=== PATIENT | female | born 1950 | race Caucasian/White ===

== ENCOUNTER → 2017-03-29 | Outpatient (CLI) | payer OTHER ==
[~2017-03-29] MED LIST: CHOL10002; CLIM.025TP; IBUP400; IBUPROFEN 600 MG; LEVA1.25 INH; LEVSOD100; LORA1; MONT10T PO; OMEP20ER PO; VITAMIN B; Xopenex Hfa15 GM INH; [UNRECOGNIZED DRUG - REMARK]
[2017-03-29 14:23] LABS: Candida species (DNA Probe) Negative (NEGATIVE); G. vaginalis (DNA Probe) Negative (NEGATIVE); T. vaginalis (DNA Probe) Negative (NEGATIVE)
== END ==
LOC: LAB 11:34
PROVIDERS: Obstetrics & Gynecology
DX: N76.0 Acute vaginitis (principal)
CPT/HCPCS: 87480; 87510; 87660

== ENCOUNTER → 2018-06-09 | Outpatient (CLI) | payer OTHER ==
[2018-06-12 14:08] LABS: HPV 16 Negative (Negative); HPV 18 Negative (Negative); HPV OTHER HR TYPES Negative (Negative)
== END | disposition home or self-care (01) ==
LOC: LAB 10:40 → LAB SHORT 10:40
PROVIDERS: Obstetrics & Gynecology
DX: Z01.419 Encounter for gynecological examination (general) (routine) without abnormal findings (principal)
CPT/HCPCS: 87624; G0123

== ENCOUNTER → 2018-07-20 | Outpatient (CLI) | payer OTHER ==
[2018-07-20 14:51] LABS: BASOPHILS ABSOLUTE AUTO 0.03 K/mm3 (0.00-0.23); BASOPHILS PERCENT AUTO 1 % (0-2); EOSINOPHILS ABSOLUTE AUTO 0.07 K/mm3 (0.00-0.68); EOSINOPHILS PERCENT AUTO 1 % (0-6); Hematocrit 45.7 % (33.0-51.0); Hemoglobin 15.1 g/dL (11.5-16.0); IMMATURE GRAN ABSOLUTE AUTO 0.01 K/mm3 (0.00-0.10); IMMATURE GRAN PERCENT AUTO 0 % (0-1); LYMPHOCYTES ABSOLUTE AUTO 1.26 K/mm3 (0.84-5.20); LYMPHOCYTES PERCENT AUTO 24 % (21-46); MONOCYTES ABSOLUTE AUTO 0.33 K/mm3 (0.16-1.47); MONOCYTES PERCENT AUTO 6 % (4-13); Mean Corpuscular HGB 31.6 pg (26.0-34.0); Mean Corpuscular Volume 96 fL (80-100); NEUTROPHILS ABSOLUTE AUTO 3.47 K/mm3 (1.96-9.15); NEUTROPHILS PERCENT AUTO 67 % (41-73); Platelet Count 187 K/mm3 (150-400); RDW Coefficient Variation 12.4 % (11.7-14.2); RDW Standard Deviation 44.9 fL (35.1-46.3); Red Blood Cell Count 4.78 M/mm3 (3.80-5.20); White Blood Cell Count 5.17 K/mm3 (4.00-11.30)
[2018-07-20 14:54] LABS: Mean Platelet Volume 13.4 fL (9.1-12.4)
[2018-07-20 15:10] LABS: Alanine Aminotransfer (ALT/SGP 30 U/L (12-78); Albumin, Blood 3.7 g/dL (3.4-5.0); Albumin/Globulin Ratio 1.1 (0.8-1.8); Alk Phos 86 U/L (50-136); Anion Gap 5 mmol/L (6-16); Aspartate Aminotrans (AST/SGOT 15 U/L (12-37); Bilirubin, Total 0.4 mg/dL (0.1-1.0); Blood Urea Nitrogen 12 mg/dL (8-24); Bun/Creatinine Ratio 14.9 (12.0-20.0); CO2, Blood 27 mmol/L (21-32); Calcium, Blood 9.2 mg/dL (8.5-10.1); Chloride, Blood 109 mmol/L (98-108); Globulin, Blood 3.4 g/dL (2.2-4.0); Glomerular Filtration Rate >60 (60-); Glucose, Blood 93 mg/dL (70-99); Sodium, Blood 141 mmol/L (136-145); Total Protein, Blood 7.1 g/dL (6.4-8.2)
== END | disposition home or self-care (01) ==
LOC: LAB SHORT 14:14 → LAB 14:14
PROVIDERS: Hospitalist
DX: R10.11 Right upper quadrant pain (principal)
CPT/HCPCS: 80053; 85025

== ENCOUNTER → 2019-04-10 | Outpatient (CLI) | payer OTHER | LOC: LAB 17:45 → LAB SHORT 17:45 | DX: M79.671 Pain in right foot (principal); M79.672 Pain in left foot | CPT/HCPCS: 84550; 85651 ==

== ENCOUNTER → 2019-07-23 | Outpatient (CLI) | payer OTHER | END | disposition home or self-care (01) | LOC: LAB 13:29 → LAB SHORT 13:29 | DX: R30.0 Dysuria (principal) | CPT/HCPCS: 87086 ==

== ENCOUNTER → 2020-09-17 | Outpatient (CLI) | payer OTHER | END | disposition home or self-care (01) | LOC: LAB SHORT 13:55 | DX: R30.0 Dysuria (principal) | CPT/HCPCS: 87086 ==

== ENCOUNTER → 2021-01-15 | Outpatient (CLI) | payer OTHER ==
[2021-01-15 16:06] LABS: Free Thyroxine 1.07 ng/dL (0.70-1.60)
[2021-01-15 16:08] LABS: Thyroid Stimulating Hormone 2.88 uIU/mL (0.360-4.800)
== END | disposition home or self-care (01) ==
LOC: LAB 13:31 → LAB SHORT 13:31
PROVIDERS: Hospitalist
DX: G43.009 Migraine without aura, not intractable, without status migrainosus (principal); E03.9 Hypothyroidism, unspecified
CPT/HCPCS: 84439; 84443

== ENCOUNTER 2021-04-08 07:55 | Day surgery (SDC) | payer OTHER ==
[~2021-04-08] VITALS: Ht 154.9 cm; Wt 91.5 kg
--- NOTE | 2021-04-08 15:05 | NUR ---
04/08/21 1505 TYLER REIS CHANGED BUBBLE GAUZE PLE RED/PINK DRAINAGE. D/C WITH DRESSING C/D/I PT PAIN IS TOLERABLE AND STATES SHE IS READY TO DISCHARGE.
== END 2021-04-08 15:56 | disposition home or self-care (01) ==
LOC: ORSCSDS 07:55
PROVIDERS: Otolaryngology
PROC: 0NR507Z Replacement of Right Temporal Bone with Autologous Tissue Substitute, Open Approach (ICD-10-PCS; principal; 2021-04-08 09:15)
DX: H71.01 Cholesteatoma of attic, right ear (principal); J45.909 Unspecified asthma, uncomplicated; Z87.891 Personal history of nicotine dependence; G47.33 Obstructive sleep apnea (adult) (pediatric); E03.9 Hypothyroidism, unspecified; K21.9 Gastro-esophageal reflux disease without esophagitis; E66.01 Morbid (severe) obesity due to excess calories; Z68.38 Body mass index [BMI] 38.0-38.9, adult; Z79.899 Other long term (current) drug therapy
CPT/HCPCS: A9270; J0171; J1100; J1885; J2250; J2405; J2704; J3010; J7120

== ENCOUNTER → 2021-08-19 | Outpatient (CLI) | payer OTHER | END | disposition home or self-care (01) | LOC: LAB 16:15 → LAB SHORT 16:15 | DX: M79.674 Pain in right toe(s) (principal) | CPT/HCPCS: 84550 ==

== ENCOUNTER 2021-08-26 14:20 | Emergency (ER) | payer OTHER ==
[~2021-08-26] VITALS: Ht 154.9 cm; Wt 74.8 kg
== END 2021-08-26 17:01 | disposition home or self-care (01) ==
LOC: ER 14:20
DX: S92.022A Displaced fracture of anterior process of left calcaneus, initial encounter for closed fracture (principal); W17.2XXA Fall into hole, initial encounter; Y92.89 Other specified places as the place of occurrence of the external cause; Z87.891 Personal history of nicotine dependence; Z79.899 Other long term (current) drug therapy
CPT/HCPCS: 29505; 73610; 73630; 99283-25

== ENCOUNTER → 2023-03-10 | Outpatient (CLI) | payer OTHER ==
[2023-03-10 19:16] LABS: Albumin, Blood 3.6 g/dL (3.4-5.0); Albumin/Globulin Ratio 1.1 (0.8-1.8); Bilirubin, Total 0.4 mg/dL (0.1-1.0); Bun/Creatinine Ratio 19.1 (12.0-20.0); Calcium, Blood 9.6 mg/dL (8.5-10.1); Free Thyroxine 1.16 ng/dL (0.70-1.60); Globulin, Blood 3.4 g/dL (2.2-4.0); Potassium, Blood 4.3 mmol/L (3.5-5.5); Thyroid Stimulating Hormone 2.99 uIU/mL (0.360-4.800)
== END ==
LOC: LAB 17:50 → LAB SHORT 17:50
PROVIDERS: Hospitalist
DX: E03.9 Hypothyroidism, unspecified (principal)
CPT/HCPCS: 80053; 84439; 84443

== ENCOUNTER 2023-09-29 15:11 | Emergency (ER) | payer OTHER ==
[~2023-09-29] VITALS: Ht 160 cm; Wt 81.7 kg
[2023-09-29 15:29] VITALS: BP 170/89
[2023-09-29] MEDS ORDERED: Acetaminophen 500 MG Tab PO ONE (15:40)
[2023-09-29] MEDS ORDERED: Ketorolac Tromethamine 30mg Vial IM ONE (15:40)
== END 2023-09-29 16:05 | disposition home or self-care (01) ==
LOC: ER 15:11
DX: S80.01XA Contusion of right knee, initial encounter (principal); W18.30XA Fall on same level, unspecified, initial encounter; Z88.2 Allergy status to sulfonamides; Z79.899 Other long term (current) drug therapy
CPT/HCPCS: A9270; J1885

== ENCOUNTER → 2024-03-08 | Outpatient (CLI) | payer OTHER ==
[2024-03-08 20:00] LABS: Free Thyroxine 1.19 ng/dL (0.70-1.60); Thyroid Stimulating Hormone 0.96 uIU/mL (0.360-4.800)
== END ==
LOC: LAB SHORT 18:14 → LAB 18:14
PROVIDERS: Hospitalist
DX: E03.9 Hypothyroidism, unspecified (principal)
CPT/HCPCS: 84439; 84443

== ENCOUNTER → 2024-11-01 | Outpatient (CLI) | payer OTHER ==
[2024-11-01 15:51] LABS: Anion Gap 6.0 mmol/L (3-11); Blood Urea Nitrogen 12.0 mg/dL (8-24); CO2, Blood 30.0 mmol/L (21-32); Calcium, Blood 8.9 mg/dL (8.5-10.1); Chloride, Blood 106.0 mmol/L (98-108); Creatinine, Blood 0.91 mg/dL (0.40-1.00); Glucose, Blood 93.0 mg/dL (70-99); Potassium, Blood 4.1 mmol/L (3.5-5.5); Sodium, Blood 138.0 mmol/L (136-145); Thyroid Stimulating Hormone 3.42 uIU/mL (0.360-4.800)
== END ==
LOC: LAB 13:39 → LAB SHORT 13:39
PROVIDERS: Hospitalist
DX: E03.9 Hypothyroidism, unspecified (principal)
CPT/HCPCS: 80048; 84439; 84443

== ENCOUNTER 2024-11-22 08:51 | Day surgery (SDC) | payer OTHER ==
[~2024-11-22] VITALS: Ht 154.9 cm; Wt 92.8 kg
[~2024-11-22 08:51] MED LIST changes: +Balanced Salt Epinephrine Irrigation Solution 500 mL IR SCH; +Moxifloxacin HCL 0.5 MG/0.1 ML 0.4MLSYR RIGHTEYE SCH; +Ondansetron 4 MG SoluTab MM PRN; +PHENYLEPHRINE\\TROPICAMIDE\\TETRACAINE OPHTHALMIC DILATING SOLN RIGHTEYE PRN; +Povidone-Iodine 450 DROP/30 ML Solution ONE; +Povidone-Iodine 450 DROP/30 ML Solution RIGHTEYE SCH; +Tetracaine HCl/Pf 0.5% Opth Soln 4 ml ONE; +Triamcinolone Inj Susp 40 MG / ML 1ML Vial INJ SCH; +Triamcinolone Inj Susp 40 MG / ML 1ML Vial ONE
[2024-11-22] MEDS ORDERED: Flonase 0.05% N16 GM (09:46)
--- NOTE | 2024-11-22 09:53 | NUR ---
11/22/24 0953 iDonne Faustin PT REPORTS ANXIETY 5/10 PRIOR TO ADMINISTRATION OF VALIUM 10MG PO @ 0991
[2024-11-22] MEDS ORDERED: LATANOPROST2.5 M3 BOTHEYES (09:55)
[2024-11-22] MEDS ORDERED: AZELASTINE137 MCG/06 (09:55)
[2024-11-22] MEDS ORDERED: ALBU90OI INH (10:08)
--- NOTE | 2024-11-22 10:39 | NUR ---
11/22/24 1039 Isela Garcia VITALS AT 1038 BP: 141/90 P: 92 O2: 98% WITH 10 LITERS OF BLOW BY OXYGEN
[2024-11-22 10:54] VITALS: BP 144/57
== END 2024-11-22 11:12 | disposition home or self-care (01) ==
LOC: ORSCSDS 08:51
PROVIDERS: Ophthalmology
PROC: 08RJ3JZ Replacement of Right Lens with Synthetic Substitute, Percutaneous Approach (ICD-10-PCS; principal; 2024-11-22 11:00)
DX: H25.811 Combined forms of age-related cataract, right eye (principal); J45.909 Unspecified asthma, uncomplicated; Z79.899 Other long term (current) drug therapy
CPT/HCPCS: A9270; J3301; V2632

== ENCOUNTER 2024-12-06 09:59 | Day surgery (SDC) | payer OTHER ==
[~2024-12-06] VITALS: Ht 154.9 cm; Wt 93.4 kg
[~2024-12-06 09:59] MED LIST changes: +ALBU90OI INH; +AZELASTINE137 MCG/06; +Flonase 0.05% N16 GM; +LATANOPROST2.5 M3 BOTHEYES; +Moxifloxacin HCL 0.5 MG/0.1 ML 0.4MLSYR LEFTEYE SCH; -Moxifloxacin HCL 0.5 MG/0.1 ML 0.4MLSYR RIGHTEYE SCH; +PHENYLEPHRINE\\TROPICAMIDE\\TETRACAINE OPHTHALMIC DILATING SOLN LEFTEYE PRN; -PHENYLEPHRINE\\TROPICAMIDE\\TETRACAINE OPHTHALMIC DILATING SOLN RIGHTEYE PRN; +Povidone-Iodine 450 DROP/30 ML Solution LEFTEYE SCH; -Povidone-Iodine 450 DROP/30 ML Solution RIGHTEYE SCH
--- NOTE | 2024-12-06 10:52 | NUR ---
12/06/24 1052 Dionne Faustin PATIENT REPORTS ANXIETY LEVEL 0/10 PRIOR TO ADMINISTRATION OF VALIUM 10MG PO AT 1049.
--- NOTE | 2024-12-06 11:40 | NUR ---
12/06/24 1140 Benita Alexander HR:72 RR:18 BP:100% ON 10L BLOW BY O2 SPO2:150/89
[2024-12-06 11:59] VITALS: BP 142/75
== END 2024-12-06 12:16 | disposition home or self-care (01) ==
LOC: ORSCSDS 09:59
PROVIDERS: Ophthalmology
PROC: 08RK3JZ Replacement of Left Lens with Synthetic Substitute, Percutaneous Approach (ICD-10-PCS; principal; 2024-12-06 11:30)
DX: H25.812 Combined forms of age-related cataract, left eye (principal); Z96.1 Presence of intraocular lens; J45.909 Unspecified asthma, uncomplicated; Z79.899 Other long term (current) drug therapy; Z87.891 Personal history of nicotine dependence
CPT/HCPCS: A9270; J3301; V2632